=== PATIENT | male | born 1945 | race African-American/Black ===

== ENCOUNTER → 2016-06-02 | Outpatient (CLI) | payer OTHER ==
--- NOTE | ~2016-06-02 | EKG ---
[address] [address] ELECTROCARDIOGRAM REPORT Name: NARDA MAYORGA Room #: REG BRISA Greer#: [id number] Admission: 06/02/16 Attend Phys: Physician not on staff Discharge: Date of : 43 Report #: [id number] THIS REPORT FOR: //name// [facility] Test Date: 2016-06-02 Test Time: 09:10:55 Pat Name: NARDA MAYORGA Department: Room: Gender: [employer]: PHUONGKINZA : 1945 Requested By: Hollie Shelby Order Number: [id number] MD: Adalberto Yanes Measurements Intervals [place] Rate: 60 P: 70 [place]: 152 QRS: 61 QRSD: 90 T: -47 QT: 394 QTc: 394 Interpretive Statements Sinus rhythm Borderline T abnormalities No previous ECG available for comparison Electronically Signed On 06-03-2016 8:13:27 CDT by Adalberto Yanse [email or web address] <ELECTRONICALLY SIGNED> By: Adalberto Yanes MD, [facility] 06/03/16 0813 0910 0910 Adalberto Yanes MD, FACC /EPI
== END ==
LOC: CV 08:55
DX: R42 Dizziness and giddiness (principal); R07.89 Other chest pain